=== PATIENT | female | born 1980 | race Caucasian/White ===

== ENCOUNTER 2023-08-02 14:08 | Emergency (ER) | payer OTHER, SELFPAY ==
--- NOTE | 2023-08-02 14:51 | ED.EYEPROB ---
HPI - Eye Problem General Chief complaint: Eye Problems Stated complaint: L Eye Injury Work 08/02/23 Time Seen by Provider: 08/02/23 15:06 Source: patient Mode of arrival: ambulatory Limitations: no limitations History of Present Illness HPI Narrative: 43-year-old female presents to the ER for evaluation of left eye burning, blurry vision and pain after she got line way in her left eye while at work. 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 She saw the nurse and she was coming water into the left eye to flush it. She reports improvement in her pain and burning but has some ongoing blurred vision on the left eye. She does not wear contacts or glasses at baseline. No drainage from the eye But she has had some clear watering, improved in the last hour. MD chief complaint: eye pain, eye injury and vision change Onset (ago): hour(s) Onset description: sudden Duration: improved Location: left eye Eye Symptoms: burning, redness, pain and blurry vision Place: work Mechanism: chemical exposure Severity: moderate If Pain, Quality: burning Associated symptoms: none Treatments Prior to Arrival: irrigated eye Related Data Previous Rx's Medication Instructions Recorded erythromycin 5 mg/gram (0.5 %) eye 0.5 inch ophthalmic (eye) BID #3.5 08/02/23 ointment grams Allergies Allergy/AdvReac Type Severity Reaction Status Date / Time latex [LATEX] Allergy Unknown RASH Verified 08/02/23 14:52 shrimp Allergy Unknown UNKNOWN Verified 08/02/23 14:52 SEAFOOD Allergy Unknown RASH Uncoded 07/14/20 14:57 Review of Systems Review of Systems: Yes all other systems are reviewed and are negative PMFSH Social History Social History Advance Directives: No Advance Directives Information Provided: No Physical Exam Vital Signs: Vital Signs: Last Vital Signs Temp 97.3 F 08/02/23 14:53 Pulse 95 08/02/23 14:53 Resp 16 08/02/23 14:53 BP 155/86 H 08/02/23 14:53 Pulse Ox 96 08/02/23 14:53 O2 Del Method Room Air 08/02/23 14:53 BMI result Body Mass Index 33.2 Appearance: Alert. Oriented X3. No acute distress. HEENT: face is symmetric, no facial swelling. Normal inspection of the periorbital areas. Normal inspection of the right eye, eye lid, lashes and associated structures. Left eye with mild scleral injection. no swelling of the left upper or lower eyelid. Pupils are equal round and reactive to light bilaterally. extraocular muscles intact. tiny punctate corneal abrasion at 3 oclock. Noted dendritic lesions or ulcerations appreciated CVS: Normal heart rate and rhythm. Pulses normal. Respiratory: No respiratory distress. Skin: Skin warm and dry. Normal skin color. Normal skin turgor. No rashes. Extremities: Normal inspection x4, no joint swelling. Neuro: Oriented X 3. Grossly normal, nonfocal Course Course Course Narrative: This is an RME: Additional HPI, ROS, PE not included below will be deferred to primary provider. Patient is a 43-year-old female who presents emergency department for evaluation of a left eye injury sustained while at work today. Reports accidentally getting chemical in her eye; [place], rinsed I at eye wash station. Endorses intermittent pain, blurred vision. Denies use of contact lenses. Plan: Visual acuity, fluorescein stainining, Medications Administered Discontinued Medications Generic Name Dose Route Start Last Admin Trade Name Darwin PRN Reason Stop Dose Admin Fluorescein Sodium 1 strip 08/02/23 14:55 08/02/23 15:23 Fluorescein Sodium Strip EYE-LEFT 08/02/23 14:56 1 strip ONCE ONE Administration Tetracaine HCl 3 drop 08/02/23 14:55 08/02/23 15:23 Tetracaine Hcl/Pf 0.5% Oph Maylin 4 Ml Drops EYE-LEFT 08/02/23 14:56 3 drop ONCE ONE Administration Medical Decision Making Medical Decision Making [facility] Narrative: 43-year-old female presenting to the ER for evaluation after she got line [place] in her left eye at work a couple of hours ago. She did irrigate it some at work. Initial pH was between a 7 and 8. eye was irrigated extensively with normal saline. Post irrigtation pH was 7. Fluorescein showed a punctate corneal abrasion at 03:00 o'clock area. Topical erythromycin ointment has been ordered. Patient is feeling much better. She is stable for discharge home. Differential Diagnosis Differential Diagnoses: The differential diagnosis associated with the presentation includes , will burn of the eye, corneal ulceration, corneal abrasion, foreign body External Record Review External record reviewed: Prior outpatient labs Prescription Management I considered prescription management with: Pain Medication and Antibiotic Critical Care Time Critical Care Time Critical Care Time: No Discharge Plan Discharge Clinical Impression: Chemical exposure of eye Corneal abrasion Qualifiers: Encounter type: initial encounter Laterality: left Qualified Code(s): S05.02XA - Injury of conjunctiva and corneal abrasion without foreign body, left eye, initial encounter Patient Disposition: Home, Self-Care Instructions: Chemical Eye Spann (ED), Corneal Abrasion (ED) Additional Instructions: Use the prescribed antibiotic ointment as directed for 1 week, complete the entire course and do not miss any doses You can continue to use over the counter saline drops to the eye as needed for pain and burning Recommend following up with your eye doctor as well as your PCP as needed. If you develop new or worsening symptoms call 911 or come back to the ER for further evaluation. Prescriptions: New erythromycin 5 mg/gram (0.5 %) ointment 0.5 inch ophthalmic (eye) BID Qty: 3.5 1RF Interventions: ED Discharge Assessment Last Done: 08/02/23 15:43 Discharge Date/Time: 08/02/23 15:46
[2023-08-02 14:53] VITALS: BP 155/86; PULSE 95; RESP 16; TEMP 36.3; O2SAT 96; BMI 33.2
--- NOTE | 2023-08-02 15:08 | PC.NURSE ---
pt comes in today after occupational chemical exposure. pt got [place] cleaner spray in her left eye. pt c/o blurry vision. denies headache/burning sensation or any other sx. pt states that she did only irrigated eye with handfuls of water.
--- NOTE | 2023-08-02 15:24 | PC.NURSE ---
provider bedside using woodlamp to assess pt. medication administered by provider. pt aware of plan of care at this time.
== END 2023-08-02 15:46 | disposition home or self-care (01) ==
PROVIDERS: Emergency Provider Emergency Medicine
DX: S05.02XA Injury of conjunctiva and corneal abrasion without foreign body, left eye, initial encounter (principal); X58.XXXA Exposure to other specified factors, initial encounter; Y93.E9 Activity, other interior property and clothing maintenance; Y92.219 Unspecified school as the place of occurrence of the external cause; Y99.0 Civilian activity done for income or pay
CPT/HCPCS: 99282; 99283

== ENCOUNTER 2024-04-08 13:32 | Outpatient (AMB) | payer SELFPAY ==
--- NOTE | 2024-04-08 13:35 | MHC.PC.OV ---
Intake Visit Reasons: Work PE/OK by B[employer]/Paperwork Intake Note: pt here forr work PE/ paperwork completion Allergies latex [LATEX] Allergy (Unknown, Verified 04/08/24 13:35) RASH shrimp Allergy (Unknown, Verified 04/08/24 13:35) UNKNOWN SEAFOOD Allergy (Unknown, Uncoded 04/08/24 13:35) RASH Tobacco use date assessed: 04/08/24 Coding
[2024-04-08 13:45] VITALS: BP 110/72; PULSE 81; O2SAT 97; BMI 32.8
--- NOTE | 2024-04-08 13:45 | MHC.OFFWIV ---
Intake Vital Signs 04/08/24 13:45 Height 5 ft Weight 168 lb BMI 32.8 BP 110/72 Blood Pressure Location Lt brachial Position Sitting Pulse 81 Pulse Source Pulse Oximeter Pulse Oximetry (%) 97 Oxygen Delivery Method Room Air Intake Visit Reasons: Work PE/OK by [employer]/Paperwork Intake Note: pt here for work PE/ paperwork completion Patient Tobacco Use Status: Never used Tobacco Allergies latex [LATEX] Allergy (Unknown, Verified 04/08/24 13:48) RASH shrimp Allergy (Unknown, Verified 04/08/24 13:48) UNKNOWN SEAFOOD Allergy (Unknown, Uncoded 04/08/24 13:48) RASH Medication List - Last Reconciled 04/08/24 by CHERYL Concepcion No Known Home Meds Do you need a note to return to daycare/school/sports/work: Yes HPI HPI Comments History of Present Illness Details Patient is a 43-year-old female in today for a work physical. Patient has brought with her her immunization records. Patient has no complaints at time of appointment [facility] Surgical History History of cholecystectomy Family History Sister No problems noted. Social History Patient Tobacco Use Status: Never used Tobacco Review of Systems Const All systems reviewed & are unremarkable except as noted in HPI and below Physical Exam Vital Signs: Last Vital Signs Pulse 81 04/08/24 13:45 BP 110/72 04/08/24 13:45 Pulse Ox 97 04/08/24 13:45 Oxygen Delivery Method Room Air 04/08/24 13:45 BMI result Body Mass Index 32.8 Const Other: Appearance: Alert.? Oriented X3.? No acute distress.? Head: Normocephalic. Eyes: Sclera white. Neck: Normal inspection.? Neck supple.? CVS: Normal heart rate and rhythm.? Pulses normal.? Respiratory: No respiratory distress.? Breath sounds normal.? Abdomen: Soft and nontender.? Skin: Skin warm and dry.? Normal skin color.? Normal skin turgor.? Extremities: No lower extremity edema. 5/5 strength to bilateral upper and lower extremities Back: No midline tenderness, no C-spine tenderness, full range of motion, no CVA tenderness bilaterally Neuro: Oriented X 3.? No motor deficit.? No sensory deficit. CN 2-12 intact Assessment & Plan Assessment & Plan (1) Encounter for physical examination: Comment: Work physical. Code(s): Z00.00 - Encounter for general adult medical examination without abnormal findings Plan: Patient has no limitations. (2) Atopic eczema: Comment: Patient needs refill of clotrimazole for intermittent eczema. Code(s): L20.9 - Atopic dermatitis, unspecified Qualifiers: Atopic dermatitis type: unspecified Qualified Code(s): L20.9 - Atopic dermatitis, unspecified Plan: No limitations. Medications: New clotrimazole-betamethasone 1-0.05 % 1 appl topical BID 15 grams 0RF Discontinued erythromycin Discontinued Reason: Patient Completed Course 0.5 inches ophthalmic (eye) BID 3.5 grams 1RF Coding Level of Care Code Sports/Work/School Physical Diagnoses Encounter for physical examination Z00.00 Atopic dermatitis, unspecified type L20.9 Atopic dermatitis type: unspecified Time Spent (min) 26
== END 2024-04-08 15:21 | disposition home or self-care (01) ==
LOC: HO.HMGC 13:33
PROVIDERS: Visit Provider Nurse Practitioner Primary Care
DX: Z02.1 Encounter for pre-employment examination (principal); L20.9 Atopic dermatitis, unspecified
CPT/HCPCS: 99080